=== PATIENT | male | born 1985 | race Caucasian/White ===

== ENCOUNTER 2023-03-04 07:02 | Emergency (ER) | payer OTHER ==
[~2023-03-04] VITALS: Ht 172.7 cm; Wt 73.0 kg
[2023-03-04 08:05] LABS: BASO # 0.1 10*3/uL (0.0-0.1); BASO % 1.4 % (0.0-1.0); EOS % 0.4 % (1.0-4.0); LYMPH # 0.6 10*3/uL (1.3-4.4); LYMPH % 7.4 % (27.0-41.0); MEAN CELL VOLUME 94.8 fl (80.0-94.0); MEAN CORPUSCULAR HGB 33.3 pg (27.0-31.0); MEAN CORPUSCULAR HGB CONC 35.1 g/dl (33.0-37.0); MEAN PLATELET VOLUME 11.3 fl (9.6-12.3); MONO % 12.6 % (3.0-9.0); NEUT # 6.5 10*3/uL (2.3-7.9); PLATELET COUNT AUTOMATED 151 10*3/uL (130-400); RED BLOOD COUNT 4.96 10*6/uL (4.50-5.90); WHITE BLOOD COUNT 8.3 10*3/uL (4.8-10.8)
[2023-03-04 08:16] LABS: ACT PARTIAL THROMBO TIME 24.1 SECONDS (20.0-32.1); INTERNATIONAL NORM RATIO 1.3 (2.0-3.5)
[2023-03-04 08:31] LABS: ALKALINE PHOSPHATASE 141 U/L (46-116); BUN 8 mg/dl (9-23); CHLORIDE 98 mmol/L (98-107); ETHYL ALCOHOL 4.4 mg/dl (<3); LIPASE 58 U/L (12-53); POTASSIUM 2.8 mmol/L (3.4-5.1); SGPT/ALT 248 U/L (10-49); TOTAL PROTEIN 8.3 gm/dL (6.0-8.0)
== END 2023-03-04 16:08 | disposition left against medical advice (07) ==
LOC: ED 07:02
PROVIDERS: Emergency Medicine
DX: F10.239 Alcohol dependence with withdrawal, unspecified (principal); G40.89 Other seizures; R79.89 Other specified abnormal findings of blood chemistry; K82.8 Other specified diseases of gallbladder; T51.0X4A Toxic effect of ethanol, undetermined, initial encounter; Y90.0 Blood alcohol level of less than 20 mg/100 ml

== ENCOUNTER 2023-03-05 10:14 | Inpatient (IN) | payer OTHER ==
[~2023-03-05] VITALS: Ht 182.8 cm
[2023-03-05] VITALS (8 sets, daily range): BP systolic 110–144; BP diastolic 68–92
[2023-03-05 10:44] LABS: HEMATOCRIT 42.3 % (42.0-52.0); MEAN CELL VOLUME 97.2 fl (80.0-94.0); MEAN CORPUSCULAR HGB 33.3 pg (27.0-31.0); MEAN CORPUSCULAR HGB CONC 34.3 g/dl (33.0-37.0); MEAN PLATELET VOLUME 11.1 fl (9.6-12.3); PLATELET COUNT AUTOMATED 149 10*3/uL (130-400); RED BLOOD COUNT 4.35 10*6/uL (4.50-5.90); RED CELL DISTRI WIDTH 12.2 % (0-14.5); WHITE BLOOD COUNT 11.6 10*3/uL (4.8-10.8)
[2023-03-05 10:51] LABS: MANUAL DIFF REFLEX YES
[2023-03-05 10:51] LABS: BILIRUBIN 3+ (Negative); BLOOD Negative (Negative); CLARITY Cloudy (Clear); GLUCOSE Negative (Negative); KETONE 3+ (Negative); LEUKO ESTERASE 1+ (Negative); NITRITE Positive (Negative); SPECIFIC GRAVITY >= 1.030 (1.001-1.030)
[2023-03-05 10:52] LABS: COLOR Orange (Yellow)
[2023-03-05 10:58] LABS: URINE AMPHETAMINES Negative (1000ng/ml); URINE BARBITURATES Negative (200ng/ml); URINE BENZODIAZEPINES Negative (200ng/ml); URINE CANNABINOIDS (THC) Negative (50ng/ml); URINE COCAINE Negative (300ng/ml); URINE METHADONE Negative (300ng/ml); URINE OPIATES Negative (300ng/ml); URINE PHENCYCLIDINE Negative (25ng/ml)
[2023-03-05 11:05] LABS: ALKALINE PHOSPHATASE 117 U/L (46-116); CHLORIDE 97 mmol/L (98-107); LIPASE 40 U/L (12-53); POTASSIUM 2.6 mmol/L (3.4-5.1); SGPT/ALT 188 U/L (10-49); TOTAL PROTEIN 8.1 gm/dL (6.0-8.0)
[2023-03-05 11:06] LABS: BUN 24 mg/dl (9-23); ETHYL ALCOHOL < 3.0 mg/dl (<3)
[2023-03-05 11:08] LABS: BACTERIA 2+; FINE GRANULAR CAST 21-30; HYALINE CAST TNTC
[2023-03-05 11:14] LABS: TOTAL CELLS COUNTED 100 #CELLS
[2023-03-05 11:15] LABS: PLATELET SUFFICIENCY NORMAL (NORMAL)
[2023-03-05 17:32] LABS: LIPASE 40 U/L (12-53)
[2023-03-06] VITALS (12 sets, daily range): BP systolic 111–145; BP diastolic 79–94
[2023-03-06 06:14] LABS: BASO # 0.1 10*3/uL (0.0-0.1); BASO % 0.9 % (0.0-1.0); EOS # 0.2 10*3/uL (0.0-0.4); EOS % 2.8 % (1.0-4.0); HEMATOCRIT 35.7 % (42.0-52.0); LYMPH # 1.1 10*3/uL (1.3-4.4); LYMPH % 18.5 % (27.0-41.0); MEAN CORPUSCULAR HGB 34.5 pg (27.0-31.0); MEAN CORPUSCULAR HGB CONC 35.6 g/dl (33.0-37.0); MEAN PLATELET VOLUME 11.1 fl (9.6-12.3); MONO # 0.7 10*3/uL (0.1-1.0); MONO % 12.3 % (3.0-9.0); NEUT # 3.7 10*3/uL (2.3-7.9); NEUT % 65.3 % (47.0-73.0); RED BLOOD COUNT 3.68 10*6/uL (4.50-5.90); RED CELL DISTRI WIDTH 11.8 % (0-14.5); WHITE BLOOD COUNT 5.7 10*3/uL (4.8-10.8)
[2023-03-06 06:20] LABS: VITAMIN D, 25-HYDROXY 36.2 ng/mL (30-100)
[2023-03-06 06:43] LABS: ALKALINE PHOSPHATASE 90 U/L (46-116); CHLORIDE 99 mmol/L (98-107); CHOLESTEROL 150 mg/dL (<200); LDL CHOLESTEROL 94 mg/dL (9-159); POTASSIUM 2.5 mmol/L (3.4-5.1); SGPT/ALT 121 U/L (10-49); TOTAL PROTEIN 6.5 gm/dL (6.0-8.0); TRIGLYCERIDES 132 mg/dl (<150)
[2023-03-06 06:48] LABS: BUN 11 mg/dl (9-23)
[2023-03-06 07:08] LABS: PLATELET COUNT AUTOMATED 96 10*3/uL (130-400)
[2023-03-06 14:41] LABS: BUN 9 mg/dl (9-23); CHLORIDE 102 mmol/L (98-107); POTASSIUM 2.9 mmol/L (3.4-5.1)
[2023-03-07] VITALS (12 sets, daily range): BP systolic 96–152; BP diastolic 60–94
[2023-03-07 06:24] LABS: BASO # 0.1 10*3/uL (0.0-0.1); BASO % 1.3 % (0.0-1.0); EOS # 0.2 10*3/uL (0.0-0.4); EOS % 3.1 % (1.0-4.0); HEMATOCRIT 37.9 % (42.0-52.0); LYMPH # 1.4 10*3/uL (1.3-4.4); MEAN CELL VOLUME 97.7 fl (80.0-94.0); MEAN CORPUSCULAR HGB CONC 34.8 g/dl (33.0-37.0); MEAN PLATELET VOLUME 11.2 fl (9.6-12.3); MONO # 0.7 10*3/uL (0.1-1.0); MONO % 13.2 % (3.0-9.0); NEUT # 2.9 10*3/uL (2.3-7.9); PLATELET COUNT AUTOMATED 114 10*3/uL (130-400); RED BLOOD COUNT 3.88 10*6/uL (4.50-5.90); RED CELL DISTRI WIDTH 11.9 % (0-14.5); WHITE BLOOD COUNT 5.2 10*3/uL (4.8-10.8)
[2023-03-07 07:26] LABS: ALKALINE PHOSPHATASE 118 U/L (46-116); BUN 6 mg/dl (9-23); CHLORIDE 100 mmol/L (98-107); POTASSIUM 3.3 mmol/L (3.4-5.1); SGPT/ALT 134 U/L (10-49); TOTAL PROTEIN 6.3 gm/dL (6.0-8.0)
[2023-03-08] VITALS (13 sets, daily range): BP systolic 104–146; BP diastolic 57–105
[2023-03-08 06:08] LABS: BASO % 0.6 % (0.0-1.0); EOS # 0.2 10*3/uL (0.0-0.4); EOS % 2.9 % (1.0-4.0); INTERNATIONAL NORM RATIO 1.2 (2.0-3.5); LYMPH # 1.2 10*3/uL (1.3-4.4); LYMPH % 17.6 % (27.0-41.0); MEAN CORPUSCULAR HGB 34.1 pg (27.0-31.0); MEAN CORPUSCULAR HGB CONC 34.8 g/dl (33.0-37.0); MEAN PLATELET VOLUME 11.8 fl (9.6-12.3); MONO # 1.1 10*3/uL (0.1-1.0); MONO % 16.5 % (3.0-9.0); NEUT # 4.2 10*3/uL (2.3-7.9); NEUT % 62.3 % (47.0-73.0); PLATELET COUNT AUTOMATED 131 10*3/uL (130-400); RED BLOOD COUNT 4.08 10*6/uL (4.50-5.90); WHITE BLOOD COUNT 6.8 10*3/uL (4.8-10.8)
[2023-03-08 06:49] LABS: ALKALINE PHOSPHATASE 139 U/L (46-116); CHLORIDE 100 mmol/L (98-107); POTASSIUM 3.2 mmol/L (3.4-5.1); SGPT/ALT 137 U/L (10-49); TOTAL PROTEIN 6.7 gm/dL (6.0-8.0)
[2023-03-08 06:54] LABS: BUN < 5 mg/dl (9-23)
[2023-03-09] VITALS (12 sets, daily range): BP systolic 115–142; BP diastolic 70–91
[2023-03-09 05:19] LABS: ALKALINE PHOSPHATASE 137 U/L (46-116); CHLORIDE 104 mmol/L (98-107); LIPASE 21 U/L (12-53); POTASSIUM 3.8 mmol/L (3.4-5.1); SGPT/ALT 121 U/L (10-49); TOTAL PROTEIN 6.4 gm/dL (6.0-8.0)
[2023-03-09 05:20] LABS: BUN < 5 mg/dl (9-23)
[2023-03-09 06:42] LABS: HEMATOCRIT 39.8 % (42.0-52.0); MEAN CELL VOLUME 98.3 fl (80.0-94.0); MEAN CORPUSCULAR HGB 34.3 pg (27.0-31.0); MEAN CORPUSCULAR HGB CONC 34.9 g/dl (33.0-37.0); MEAN PLATELET VOLUME 12.8 fl (9.6-12.3); PLATELET COUNT AUTOMATED 156 10*3/uL (130-400); RED BLOOD COUNT 4.05 10*6/uL (4.50-5.90); RED CELL DISTRI WIDTH 12.3 % (0-14.5); WHITE BLOOD COUNT 6.3 10*3/uL (4.8-10.8)
[2023-03-09 06:43] LABS: MANUAL DIFF REFLEX YES
[2023-03-09 07:28] LABS: ATYPICAL LYMPHS 1 % (0-0); BASOPHILS 2 % (0-1); TOTAL CELLS COUNTED 100 #CELLS
[2023-03-09 07:29] LABS: PLATELET SUFFICIENCY NORMAL (NORMAL); POLYCHROMASIA SLIGHT; ROULEAUX SLIGHT
[2023-03-10] VITALS (12 sets, daily range): BP systolic 114–157; BP diastolic 68–98
[2023-03-10 06:15] LABS: HEMATOCRIT 40.2 % (42.0-52.0); MEAN CORPUSCULAR HGB 34.1 pg (27.0-31.0); MEAN CORPUSCULAR HGB CONC 34.1 g/dl (33.0-37.0); MEAN PLATELET VOLUME 12.2 fl (9.6-12.3); PLATELET COUNT AUTOMATED 185 10*3/uL (130-400); RED BLOOD COUNT 4.02 10*6/uL (4.50-5.90); RED CELL DISTRI WIDTH 12.3 % (0-14.5); WHITE BLOOD COUNT 6.8 10*3/uL (4.8-10.8)
[2023-03-10 06:16] LABS: MANUAL DIFF REFLEX YES
[2023-03-10 06:31] LABS: ALKALINE PHOSPHATASE 135 U/L (46-116); BUN 6 mg/dl (9-23); CHLORIDE 102 mmol/L (98-107); POTASSIUM 3.8 mmol/L (3.4-5.1); SGPT/ALT 95 U/L (10-49); TOTAL PROTEIN 6.5 gm/dL (6.0-8.0)
[2023-03-10 07:11] LABS: POLYCHROMASIA SLIGHT; TOTAL CELLS COUNTED 100 #CELLS
[2023-03-10 07:12] LABS: OVALOCYTES FEW; PLATELET SUFFICIENCY NORMAL (NORMAL); ROULEAUX SLIGHT
[2023-03-11] VITALS (11 sets, daily range): BP systolic 102–155; BP diastolic 71–94
[2023-03-11 06:33] LABS: HEMATOCRIT 40.5 % (42.0-52.0); MANUAL DIFF REFLEX YES; MEAN CELL VOLUME 100.5 fl (80.0-94.0); MEAN CORPUSCULAR HGB CONC 33.8 g/dl (33.0-37.0); MEAN PLATELET VOLUME 12.2 fl (9.6-12.3); PLATELET COUNT AUTOMATED 219 10*3/uL (130-400); RED BLOOD COUNT 4.03 10*6/uL (4.50-5.90); RED CELL DISTRI WIDTH 12.3 % (0-14.5)
[2023-03-11 06:44] LABS: ALKALINE PHOSPHATASE 163 U/L (46-116); BUN 5 mg/dl (9-23); CHLORIDE 105 mmol/L (98-107); POTASSIUM 3.6 mmol/L (3.4-5.1); SGPT/ALT 75 U/L (10-49); TOTAL PROTEIN 6.3 gm/dL (6.0-8.0)
[2023-03-11 07:06] LABS: BASOPHILS 2 % (0-1); PLATELET SUFFICIENCY NORMAL (NORMAL); POLYCHROMASIA SLIGHT; TOTAL CELLS COUNTED 100 #CELLS
[2023-03-12] VITALS (12 sets, daily range): BP systolic 98–132; BP diastolic 60–87
[2023-03-12 06:22] LABS: MANUAL DIFF REFLEX YES; MEAN CELL VOLUME 98.7 fl (80.0-94.0); MEAN CORPUSCULAR HGB 33.9 pg (27.0-31.0); MEAN CORPUSCULAR HGB CONC 34.4 g/dl (33.0-37.0); MEAN PLATELET VOLUME 12.1 fl (9.6-12.3); PLATELET COUNT AUTOMATED 250 10*3/uL (130-400); RED BLOOD COUNT 3.95 10*6/uL (4.50-5.90); RED CELL DISTRI WIDTH 12.2 % (0-14.5)
[2023-03-12 06:54] LABS: CHLORIDE 101 mmol/L (98-107); POTASSIUM 3.3 mmol/L (3.4-5.1)
[2023-03-12 06:55] LABS: BASOPHILS 1 % (0-1); TOTAL CELLS COUNTED 100 #CELLS
[2023-03-12 06:56] LABS: BURR CELLS FEW; PLATELET SUFFICIENCY NORMAL (NORMAL); POLYCHROMASIA SLIGHT; ROULEAUX SLIGHT
[2023-03-12 06:59] LABS: BUN < 5 mg/dl (9-23)
[2023-03-12 12:50] LABS: ALKALINE PHOSPHATASE 198 U/L (46-116); BUN 5 mg/dl (9-23); CHLORIDE 102 mmol/L (98-107); POTASSIUM 3.9 mmol/L (3.4-5.1); SGPT/ALT 66 U/L (10-49); TOTAL PROTEIN 6.3 gm/dL (6.0-8.0)
[2023-03-13] VITALS: BP 129/87
[2023-03-13 04:00] VITALS: BP 147/85
[2023-03-13 05:38] LABS: ALKALINE PHOSPHATASE 215 U/L (46-116); CHLORIDE 102 mmol/L (98-107); SGPT/ALT 62 U/L (10-49); TOTAL PROTEIN 6.5 gm/dL (6.0-8.0)
[2023-03-13 05:48] LABS: BUN < 5 mg/dl (9-23)
[2023-03-13 06:10] LABS: BASO # 0.1 10*3/uL (0.0-0.1); EOS # 0.1 10*3/uL (0.0-0.4); EOS % 1.6 % (1.0-4.0); LYMPH # 1.8 10*3/uL (1.3-4.4); LYMPH % 22.3 % (27.0-41.0); MEAN CELL VOLUME 100.2 fl (80.0-94.0); MEAN CORPUSCULAR HGB 34.1 pg (27.0-31.0); MONO # 1.5 10*3/uL (0.1-1.0); MONO % 18.9 % (3.0-9.0); NEUT # 4.3 10*3/uL (2.3-7.9); NEUT % 54.7 % (47.0-73.0); PLATELET COUNT AUTOMATED 319 10*3/uL (130-400); RED BLOOD COUNT 4.19 10*6/uL (4.50-5.90); RED CELL DISTRI WIDTH 12.4 % (0-14.5); WHITE BLOOD COUNT 7.9 10*3/uL (4.8-10.8)
[2023-03-13 08:00] VITALS: BP 116/80
[2023-03-13 12:00] VITALS: BP 90/58
[2023-03-13 16:00] VITALS: BP 122/69
[2023-03-13 20:00] VITALS: BP 138/77
[2023-03-14] VITALS: BP 128/73
[2023-03-14 04:00] VITALS: BP 128/72
[2023-03-14 05:58] LABS: ALKALINE PHOSPHATASE 204 U/L (46-116); BUN < 5 mg/dl (9-23); CHLORIDE 104 mmol/L (98-107); POTASSIUM 3.2 mmol/L (3.4-5.1); SGPT/ALT 59 U/L (10-49); TOTAL PROTEIN 6.5 gm/dL (6.0-8.0)
[2023-03-14 06:22] LABS: BASO # 0.1 10*3/uL (0.0-0.1); BASO % 1.3 % (0.0-1.0); EOS # 0.1 10*3/uL (0.0-0.4); HEMATOCRIT 39.3 % (42.0-52.0); LYMPH # 1.7 10*3/uL (1.3-4.4); LYMPH % 21.7 % (27.0-41.0); MEAN CORPUSCULAR HGB 33.9 pg (27.0-31.0); MEAN CORPUSCULAR HGB CONC 34.6 g/dl (33.0-37.0); MEAN PLATELET VOLUME 11.5 fl (9.6-12.3); MONO # 1.4 10*3/uL (0.1-1.0); MONO % 17.6 % (3.0-9.0); NEUT # 4.4 10*3/uL (2.3-7.9); NEUT % 57.5 % (47.0-73.0); PLATELET COUNT AUTOMATED 387 10*3/uL (130-400); RED BLOOD COUNT 4.01 10*6/uL (4.50-5.90); RED CELL DISTRI WIDTH 12.6 % (0-14.5); WHITE BLOOD COUNT 7.7 10*3/uL (4.8-10.8)
[2023-03-14 08:00] VITALS: BP 135/84
[2023-03-14 12:00] VITALS: BP 154/99
[2023-03-14 16:00] VITALS: BP 153/88
[2023-03-14 20:00] VITALS: BP 150/98
[2023-03-15] VITALS: BP 151/89
[2023-03-15 05:37] LABS: ALKALINE PHOSPHATASE 191 U/L (46-116); CHLORIDE 107 mmol/L (98-107); POTASSIUM 3.3 mmol/L (3.4-5.1); SGPT/ALT 59 U/L (10-49); TOTAL PROTEIN 6.5 gm/dL (6.0-8.0)
[2023-03-15 05:38] LABS: BUN < 5 mg/dl (9-23)
[2023-03-15 06:09] LABS: BASO # 0.1 10*3/uL (0.0-0.1); BASO % 1.6 % (0.0-1.0); EOS # 0.3 10*3/uL (0.0-0.4); EOS % 3.7 % (1.0-4.0); HEMATOCRIT 38.4 % (42.0-52.0); LYMPH % 25.9 % (27.0-41.0); MEAN CELL VOLUME 99.2 fl (80.0-94.0); MEAN CORPUSCULAR HGB 33.6 pg (27.0-31.0); MEAN CORPUSCULAR HGB CONC 33.9 g/dl (33.0-37.0); MEAN PLATELET VOLUME 11.2 fl (9.6-12.3); MONO # 1.2 10*3/uL (0.1-1.0); MONO % 16.2 % (3.0-9.0); NEUT # 3.9 10*3/uL (2.3-7.9); NEUT % 52.1 % (47.0-73.0); PLATELET COUNT AUTOMATED 397 10*3/uL (130-400); RED BLOOD COUNT 3.87 10*6/uL (4.50-5.90); RED CELL DISTRI WIDTH 12.3 % (0-14.5); WHITE BLOOD COUNT 7.6 10*3/uL (4.8-10.8)
[2023-03-15 08:00] VITALS: BP 138/84
[2023-03-15] MEDS ORDERED: SERTRALINE HYDR50 MG PO (11:44)
[2023-03-15] MEDS ORDERED: METOPROLOL SUCC25 M2 PO (11:44)
[2023-03-15] MEDS ORDERED: THIAMINE HCL100 MG PO (11:44)
[2023-03-15 12:00] VITALS: BP 141/80
== END 2023-03-15 14:21 | disposition home or self-care (01) | DRG 91 ==
LOC: ED 10:14 → EDHOLD 14:34 → 4E 14:34 → ICCU 14:34 → 4E 14:49 → ICCU 16:44 → 5E 03-14 18:13
PROVIDERS: Internal Medicine; Student in an Organized Health Care Education/Training Program; Surgery; ADMIT Internal Medicine; ATTEND Internal Medicine
DX: G92.8 Other toxic encephalopathy (principal); N17.0 Acute kidney failure with tubular necrosis; F10.231 Alcohol dependence with withdrawal delirium; E87.20 Acidosis, unspecified; N39.0 Urinary tract infection, site not specified; F31.9 Bipolar disorder, unspecified; E83.42 Hypomagnesemia; R41.3 Other amnesia; E83.39 Other disorders of phosphorus metabolism; K82.8 Other specified diseases of gallbladder; F43.23 Adjustment disorder with mixed anxiety and depressed mood; R73.9 Hyperglycemia, unspecified; R74.01 Elevation of levels of liver transaminase levels; K74.60 Unspecified cirrhosis of liver; E80.6 Other disorders of bilirubin metabolism; Y90.0 Blood alcohol level of less than 20 mg/100 ml; E87.6 Hypokalemia; K76.0 Fatty (change of) liver, not elsewhere classified; K76.9 Liver disease, unspecified; K80.20 Calculus of gallbladder without cholecystitis without obstruction; Z83.3 Family history of diabetes mellitus; Z80.9 Family history of malignant neoplasm, unspecified